=== PATIENT | female | born 1990 | race Caucasian/White ===

== ENCOUNTER 2018-06-18 00:27 | Emergency (ER) | payer MEDICAID ==
[~2018-06-18] VITALS: Ht 162.6 cm; Wt 71.9 kg
[2018-06-18 00:33] VITALS: BP 116/76
--- NOTE | 2018-06-18 00:49 | NUR ---
DR. PUENTES AT BEDSIDE EVALUATING PT
[2018-06-18 01:01] LABS: BASOPHILS # (AUTO) 0.03 x10^3/uL (0-0.1); BASOPHILS % (AUTO) 0 % (0-1); EOSINOPHILS # (AUTO) 0.15 x10^3/uL (0-0.4); EOSINOPHILS % (AUTO) 2 % (1-7); LYMPHOCYTES # (AUTO) 2.51 x10^3/uL (1-3.4); LYMPHOCYTES % (AUTO) 30 % (22-44); MD NO; MEAN CORPUSCULAR HEMOGLOBIN 27.2 pg (27.0-34.8); MEAN CORPUSCULAR HGB CONC 33.4 g/dL (32.4-35.8); MEAN CORPUSCULAR VOLUME 81.3 fL (80-100); MEAN PLATELET VOLUME 9.7 fL (7.4-10.4); MONOCYTES # (AUTO) 0.54 x10^3/uL (0.2-0.8); MONOCYTES % (AUTO) 6 % (2-9); NEUTROPHILS # (AUTO) 5.22 x10^3/uL (1.8-6.8); NEUTROPHILS % (AUTO) 62 % (42-75); PLATELET COUNT 310 x10^3/uL (130-400); RED BLOOD COUNT 4.42 x10^6/uL (3.82-5.3); RED CELL DISTRIBUTION WIDTH 14.5 % (9.6-15.2)
--- NOTE | 2018-06-18 01:20 | NUR ---
BREAK RN: PT SET UP FOR PELVIC EXAM. ASPHALT TAR AND GRAVEL ROOFER CART IN ROOM. PT RESTING CALMLY IN BED WITH EYES CLOSED.
--- NOTE | 2018-06-18 01:25 | NUR ---
BREAK RN: PT STATED HER BLEEDING HAS STOPPED AND DECLINED PELVIC EXAM AT THIS TIME. ERP EXPLAINED THAT PT CAN RETURN ANYTIME FOR FOLLOW UP AND NEEDS TO HAVE ANOTHER HCG LEVEL DONE WITHIN 2 DAYS. PT ACKNOWLEDGED.
== END 2018-06-18 01:47 | disposition home or self-care (01) ==
LOC: ED 01:00
DX: N93.8 Other specified abnormal uterine and vaginal bleeding (principal)
CPT/HCPCS: 36415; 84702; 85025; 86901; 99283